=== PATIENT | female | born 1955 | race African-American/Black ===

== ENCOUNTER 2017-01-07 08:04 | Inpatient (IN) | payer OTHER, MEDICAID ==
[2017-01-01 16:26] LABS: BASOPHILS % (AUTO) 0.5 % (0.0-2.0); EOSINOPHILS # (AUTO) 0.2 K/uL (0.0-0.4); EOSINOPHILS % (AUTO) 2.9 % (0.0-4.0); HEMATOCRIT 36.2 % (36-48); HEMOGLOBIN 11.6 g/dL (12.0-16.0); MEAN CORPUSCULAR HEMOGLOBIN 30 pg (27-31); MEAN CORPUSCULAR HGB CONC 32 % (32-36); MEAN CORPUSCULAR VOLUME 92 fL (79.0-98.0); MONOCYTES # (AUTO) 0.5 K/uL (0.0-1.0); MONOCYTES % (AUTO) 6.7 % (1.7-9.3); NEUTROPHILS # (AUTO) 6.4 K/uL (1.8-7.7); NEUTROPHILS % (AUTO) 76.9 % (40.0-70.0); PLATELET COUNT (AUTO) 268 K/uL (130-430); RED BLOOD CELL COUNT(AUTO) 3.94 MIL/uL (4.2-6.2); RED CELL DISTRIBUTION WIDTH 14.1 % (9.0-15.0); WHITE BLOOD COUNT (AUTO) 8.1 K/uL (4.8-10.8)
[2017-01-01 16:36] LABS: CALCIUM 8.7 mg/dL (8.4-11.0); CREATININE 1.01 mg/dL (0.55-1.30); POTASSIUM 3.7 mmol/L (3.5-5.1)
[2017-01-01 16:39] LABS: INR 0.9 (0.8-1.2); PROTHROMBIN TIME 10.1 SECS (9.5-12.5)
[~2017-01-07] VITALS: Ht 167.6 cm; Wt 114.3 kg
[2017-01-07] MEDS ORDERED: GABA300S PO (08:56)
[2017-01-07] MEDS ORDERED: LEUC10TA2 PO (08:56)
[2017-01-07] MEDS ORDERED: BACL20TA PO (08:56)
[2017-01-07] MEDS ORDERED: DULO30CA51 PO (08:56)
[2017-01-07] MEDS ORDERED: FERR-57 PO (08:56)
[2017-01-07] MEDS ORDERED: CYCL7.5T20 PO (08:56)
[2017-01-07] MEDS ORDERED: FOLI-43 PO (08:56)
[2017-01-07] MEDS ORDERED: CA C1TAB92 PO (08:56)
[2017-01-07] MEDS ORDERED: PRED2.5T4 PO (08:56)
[2017-01-07] MEDS ORDERED: VALS320T13 PO (08:56)
[2017-01-07] MEDS ORDERED: ATOR40TA68 PO (08:56)
[2017-01-07] MEDS ORDERED: RANI-362 PO (08:56)
[2017-01-07] MEDS ORDERED: COR25 PO (08:56)
[2017-01-07] MEDS ORDERED: PRED5TAB PO (11:19)
[2017-01-07] MEDS ORDERED: LEUC5TAB PO (11:19)
[2017-01-07] MEDS ORDERED: GABA-531 PO (11:19)
[2017-01-07] MEDS ORDERED: [UNRECOGNIZED DRUG - CODE] SQ (11:21)
[2017-01-07] MEDS ORDERED: TOCI162S SQ (11:23)
[2017-01-07] MEDS ORDERED: FLUR100T3 PO (11:41)
[2017-01-07] MEDS ORDERED: DEXAMETHASONE SOD PHOSPHATE 4 MG/ML VIAL IVP ONE (15:00)
[2017-01-07] MEDS ORDERED: fentaNYL CITRATE 250 MCG/5 ML AMP IV ONE (15:00)
[2017-01-07] MEDS ORDERED: ROCURONIUM BROMIDE 10 MG/ML (ZEMURON) IV ONE (15:00)
[2017-01-07] MEDS ORDERED: LR 1,000 ML IV.SOLN IV ONE (15:00)
[2017-01-07] MEDS ORDERED: SUCCINYLCHOLINE CHLORIDE 20 MG/ML(QUELICIN) IVP ONE (15:00)
[2017-01-07] MEDS ORDERED: MIDAZOLAM HCL 5 MG/5 ML VIAL IVP ONE (15:00)
[2017-01-07] MEDS ORDERED: PROPOFOL 200MG/ 20ML VIAL (DIPRIVAN) IV ONE (15:00)
[2017-01-07] MEDS ORDERED: ONDANSETRON HCL 4 MG/2 ML VIAL IVP ONE (15:00)
[2017-01-07] MEDS ORDERED: HYDROCORTISONE SOD SUCC 100 MG/2 ML VIAL IVP ONE (15:00)
[2017-01-07] MEDS ORDERED: THROMBIN (BOVINE) 5000 UNITS/ VIAL TP ONE (15:00)
[2017-01-07] MEDS ORDERED: SEVOFLURANE 15 MIN GAS INH ONE (15:00)
[2017-01-07] MEDS ORDERED: KETOROLAC TROMETHAMINE 30 MG VIAL IVP ONE (15:00)
[2017-01-07] MEDS ORDERED: CEFAZOLIN 2 GM IVPB PREMIX 50 ML IV ONE (15:00)
[2017-01-07] MEDS ORDERED: DIPHENHYDRAMINE HCL 25 MG CAPSULE PO PRN (17:00)
[2017-01-07] MEDS ORDERED: ONDANSETRON HCL 4 MG/2 ML VIAL IVP PRN (17:00)
[2017-01-07] MEDS ORDERED: HYDROcodone/ACETAMIN 10-325 MG TAB PO PRN (17:00)
[2017-01-07] MEDS ORDERED: LR 1,000 ML IV SCH (17:00)
[2017-01-07] MEDS ORDERED: MILK OF MAGNESIA 30 ML UDC PO PRN (17:00)
[2017-01-07] MEDS ORDERED: HYDROmorphone 1 MG INJ. 1 MG/ML AMPUL IVP PRN ×3 (17:00)
[2017-01-07] MEDS ORDERED: MEPERIDINE HCL/PF 25 MG/ML DISP.SYRIN IVP PRN (17:00)
[2017-01-07] MEDS ORDERED: HYDROmorphone 2 MG/ML VIAL IVP PRN ×3 (17:00)
[2017-01-07] MEDS ORDERED: BACLOFEN 10 MG TABLET PO PRN (17:00)
[2017-01-07] MEDS ORDERED: BISACODYL 10 MG/SUPPOSITORY RC PRN (17:00)
[2017-01-07] MEDS ORDERED: ZOLPIDEM TARTRATE 5 MG TABLET PO PRN (17:00)
[2017-01-07 18:19] VITALS: BP_SYST 133
[2017-01-07 21:00] VITALS: BP_SYST 133
[2017-01-07] MEDS: DULoxetine HCL 30 MG CAPSULE.DR (CYMBALTA) PO SCH (21:44)
[2017-01-07] MEDS: GABAPENTIN 300 MG CAPSULE PO SCH (21:44)
[2017-01-07] MEDS: PREDNISONE 5 MG TABLET PO SCH (21:44)
[2017-01-07] MEDS: FERROUS SULFATE 325 MG TABLET.DR PO SCH (21:44)
[2017-01-07] MEDS: DOCUSATE SODIUM 100 MG CAPSULE PO SCH (21:44)
[2017-01-07] MEDS: BACLOFEN 10 MG TABLET PO SCH (21:44)
[2017-01-07] MEDS: CARVEDILOL 25 MG TABLET (COREG) PO SCH (21:45)
[2017-01-07] MEDS: CEFAZOLIN 2 GM IVPB PREMIX 50 ML IV SCH (23:38)
[2017-01-07] MEDS: KCL 20 mEq in D5NS 1000 mL 1,000 ML IV SCH (23:39)
[2017-01-08 00:40] VITALS: BP_SYST 119
[2017-01-08 05:12] LABS: POTASSIUM 3.8 mmol/L (3.5-5.1)
[2017-01-08 05:13] LABS: CALCIUM 8.5 mg/dL (8.4-11.0); CREATININE 1.28 mg/dL (0.55-1.30)
[2017-01-08 05:14] LABS: HEMATOCRIT 36.4 % (36-48); HEMOGLOBIN 12.3 g/dL (12.0-16.0); MEAN CORPUSCULAR HEMOGLOBIN 31 pg (27-31); MEAN CORPUSCULAR HGB CONC 34 % (32-36); MEAN CORPUSCULAR VOLUME 92 fL (79.0-98.0); PLATELET COUNT (AUTO) 243 K/uL (130-430); RED BLOOD CELL COUNT(AUTO) 3.95 MIL/uL (4.2-6.2); RED CELL DISTRIBUTION WIDTH 13.8 % (9.0-15.0); WHITE BLOOD COUNT (AUTO) 12.1 K/uL (4.8-10.8)
[2017-01-08 05:52] VITALS: BP_SYST 128
[2017-01-08] MEDS: CEFAZOLIN 2 GM IVPB PREMIX 50 ML IV SCH ×2 (06:30→14:35)
[2017-01-08 06:39] LABS: BAND % (MANUAL) 6 % (0-6); BASOPHILS % (MANUAL) 0 % (0-2); EOSINOPHILS % (MANUAL) 0 % (0-7); LYMPHOCYTES % (MANUAL) 3 % (20-46); MONOCYTES % (MANUAL) 2 % (0-11)
[2017-01-08 08:00] VITALS: BP_SYST 129
[2017-01-08] MEDS: FOLIC ACID 1 MG TABLET PO SCH (09:09)
[2017-01-08] MEDS: FERROUS SULFATE 325 MG TABLET.DR PO SCH ×2 (09:09→20:56)
[2017-01-08] MEDS: DOCUSATE SODIUM 100 MG CAPSULE PO SCH ×2 (09:09→20:55)
[2017-01-08] MEDS: DULoxetine HCL 30 MG CAPSULE.DR (CYMBALTA) PO SCH ×2 (09:09→20:55)
[2017-01-08] MEDS: ATORVASTATIN 20 MG TABLET PO SCH (09:09)
[2017-01-08] MEDS: BACLOFEN 10 MG TABLET PO SCH ×2 (09:10→20:55)
[2017-01-08] MEDS: PREDNISONE 5 MG TABLET PO SCH ×2 (09:10→20:55)
[2017-01-08] MEDS: KCL 20 mEq in D5NS 1000 mL 1,000 ML IV SCH ×3 (09:10→12:07)
[2017-01-08] MEDS: CARVEDILOL 25 MG TABLET (COREG) PO SCH ×2 (09:17→20:56)
[2017-01-08] MEDS: HYDROcodone/ACETAMIN 10-325 MG TAB PO PRN ×2 (09:25→16:27)
[2017-01-08 12:50] VITALS: BP_SYST 125
[2017-01-08 16:30] VITALS: BP_SYST 130
[2017-01-08 19:40] VITALS: BP_SYST 129
[2017-01-08] MEDS: GABAPENTIN 300 MG CAPSULE PO SCH (20:56)
[2017-01-09 01:04] VITALS: BP_SYST 132
[2017-01-09] MEDS: KCL 20 mEq in D5NS 1000 mL 1,000 ML IV SCH (03:15)
[2017-01-09 03:49] VITALS: BP_SYST 152
[2017-01-09 08:32] VITALS: BP_SYST 160
[2017-01-09] MEDS: FOLIC ACID 1 MG TABLET PO SCH (09:16)
[2017-01-09] MEDS: FERROUS SULFATE 325 MG TABLET.DR PO SCH (09:19)
[2017-01-09] MEDS: DOCUSATE SODIUM 100 MG CAPSULE PO SCH (09:19)
[2017-01-09] MEDS: PREDNISONE 5 MG TABLET PO SCH (09:19)
[2017-01-09] MEDS: ATORVASTATIN 20 MG TABLET PO SCH (09:19)
[2017-01-09] MEDS: DULoxetine HCL 30 MG CAPSULE.DR (CYMBALTA) PO SCH (09:20)
[2017-01-09] MEDS: BACLOFEN 10 MG TABLET PO SCH (09:20)
[2017-01-09] MEDS: CARVEDILOL 25 MG TABLET (COREG) PO SCH (09:20)
[2017-01-09 10:38] VITALS: BP_SYST 138
[2017-01-09] MEDS ORDERED: HYDR-4100 (10:48)
[2017-01-09 11:00] VITALS: BP_SYST 145
[2017-01-11] MEDS ORDERED: LEUCOVORIN CALCIUM 5 MG TABLET PO SCH (09:00)
== END 2017-01-09 11:25 | disposition home or self-care (01) | DRG 472 ==
LOC: SMU 09:00
PROVIDERS: ADMIT Neurological Surgery; ATTEND Neurological Surgery
PROC: 0RG10A0 Fusion of Cervical Vertebral Joint with Interbody Fusion Device, Anterior Approach, Anterior Column, Open Approach (ICD-10-PCS; 2017-01-07)
PROC: 0RT30ZZ Resection of Cervical Vertebral Disc, Open Approach (ICD-10-PCS; principal; 2017-01-07 07:30)
DX: M50.01 Cervical disc disorder with myelopathy, high cervical region (principal); Z68.41 Body mass index [BMI] 40.0-44.9, adult; K21.9 Gastro-esophageal reflux disease without esophagitis; I10 Essential (primary) hypertension; Z79.899 Other long term (current) drug therapy; E66.01 Morbid (severe) obesity due to excess calories
CPT/HCPCS: 36415; 76001; 80048; 85007; 85025; 85027; 85610-TC; 87081; 97116-GP; C1713; C1763; J0330; J0690; J1100; J1720; J1885; J2250; J2405; J2704; J3010; J7120; J7512

== ENCOUNTER 2017-01-12 16:15 | Inpatient (IN) | payer OTHER, MEDICAID ==
[~2017-01-12] VITALS: Ht 167.6 cm; Wt 120.7 kg
[2017-01-12 16:15] VITALS: BP_SYST 148
[~2017-01-12 16:15] MED LIST: ATOR40TA68 PO; BACL20TA PO; COR25 PO; CYCL7.5T20 PO; DULO30CA51 PO; FERR-57 PO; FLUR100T3 PO; FOLI-43 PO; GABA-531 PO; HYDR-4100; LEUC5TAB PO; PRED5TAB PO; RANI-362 PO; VALS320T13 PO
[2017-01-12 17:08] LABS: BASOPHILS % (AUTO) 0.6 % (0.0-2.0); EOSINOPHILS # (AUTO) 0.2 K/uL (0.0-0.4); EOSINOPHILS % (AUTO) 4.6 % (0.0-4.0); HEMATOCRIT 37.1 % (36-48); HEMOGLOBIN 12.3 g/dL (12.0-16.0); LYMPHOCYTES # (AUTO) 0.9 K/uL (1.0-5.5); LYMPHOCYTES % (AUTO) 18.3 % (20.5-51.5); MEAN CORPUSCULAR HEMOGLOBIN 31 pg (27-31); MEAN CORPUSCULAR HGB CONC 33 % (32-36); MEAN CORPUSCULAR VOLUME 92 fL (79.0-98.0); MONOCYTES # (AUTO) 0.3 K/uL (0.0-1.0); MONOCYTES % (AUTO) 6.7 % (1.7-9.3); NEUTROPHILS # (AUTO) 3.8 K/uL (1.8-7.7); NEUTROPHILS % (AUTO) 69.8 % (40.0-70.0); PLATELET COUNT (AUTO) 240 K/uL (130-430); RED BLOOD CELL COUNT(AUTO) 4.03 MIL/uL (4.2-6.2); RED CELL DISTRIBUTION WIDTH 14.2 % (9.0-15.0); WHITE BLOOD COUNT (AUTO) 5.2 K/uL (4.8-10.8)
[2017-01-12 17:12] LABS: CALCIUM 9.2 mg/dL (8.4-11.0); CREATININE 0.87 mg/dL (0.55-1.30); POTASSIUM 3.8 mmol/L (3.5-5.1)
[2017-01-12 17:17] LABS: ALBUMIN 3.4 g/dL (3.4-4.8); TOTAL BILIRUBIN 0.5 mg/dL (0.0-1.0); TOTAL PROTEIN, SERUM 6.4 g/dL (6.4-8.3)
[2017-01-12] MEDS ORDERED: NACL 0.9% 1,000 ML IV ONE (18:15)
[2017-01-12 21:46] LABS: BILIRUBIN,URINE NEGATIVE (NEGATIVE); BLOOD, URINE NEGATIVE (NEGATIVE); CLARITY/URINE CLEAR (CLEAR); COLOR,URINE YELLOW (YELLOW); GLUCOSE,URINE NEGATIVE (NEGATIVE); KETONES,URINE NEGATIVE (NEGATIVE); LEUKOCYTE ESTERASE ,URINE NEGATIVE (NEGATIVE); NITRITE, URINE NEGATIVE (NEGATIVE); PROTEIN URINE NEGATIVE (NEGATIVE); UROBILINOGEN,URINE 0.2 (0.2-1.0)
[2017-01-13] MEDS ORDERED: CYCL-10 PO (01:31)
[2017-01-13] MEDS ORDERED: LIP40 PO (01:32)
[2017-01-13] MEDS ORDERED: VALS1TAB80 PO (01:35)
[2017-01-13] MEDS ORDERED: [UNRECOGNIZED DRUG - CODE] SQ (01:36)
[2017-01-13] MEDS ORDERED: TOCI162S SQ (01:36)
[2017-01-13 02:26] VITALS: BP_SYST 138
[2017-01-13 07:58] VITALS: BP_SYST 140
[2017-01-13 08:27] VITALS: BP_SYST 141
[2017-01-13] MEDS ORDERED: VALSARTAN PO SCH (09:00)
[2017-01-13] MEDS: BACLOFEN 10 MG TABLET PO SCH ×2 (09:00→21:41)
[2017-01-13] MEDS ORDERED: FLURBIPROFEN 100 MG PO SCH (09:00)
[2017-01-13] MEDS: VALSARTAN 160 MG TABLET (DIOVAN) PO SCH (09:00)
[2017-01-13] MEDS ORDERED: HCTZ PO SCH (09:00)
[2017-01-13] MEDS: DULoxetine HCL 30 MG CAPSULE.DR (CYMBALTA) PO SCH (09:01)
[2017-01-13] MEDS: HYDROCHLOROTHIAZIDE 25 MG TABLET (HCTZ) PO SCH (09:01)
[2017-01-13] MEDS: CYCLOBENZAPRINE HCL 10 MG TABLET (FLEXERIL) PO SCH ×3 (09:01→21:41)
[2017-01-13] MEDS: FERROUS SULFATE 325 MG TABLET.DR PO SCH ×2 (09:02→21:42)
[2017-01-13] MEDS: FOLIC ACID 1 MG TABLET PO SCH (09:02)
[2017-01-13] MEDS: CARVEDILOL 25 MG TABLET (COREG) PO SCH ×2 (09:02→21:42)
[2017-01-13] MEDS: ATORVASTATIN 20 MG TABLET PO SCH (09:02)
[2017-01-13] MEDS: PREDNISONE 5 MG TABLET PO SCH ×2 (09:02→21:41)
[2017-01-13 12:35] VITALS: BP_SYST 142
[2017-01-13 16:11] VITALS: BP_SYST 125
[2017-01-13 20:30] VITALS: BP_SYST 146
[2017-01-13] MEDS: GABAPENTIN 300 MG CAPSULE PO SCH (21:41)
[2017-01-14] VITALS: BP_SYST 145
[2017-01-14 04:20] VITALS: BP_SYST 139
[2017-01-14 08:00] VITALS: BP_SYST 128
[2017-01-14] MEDS: BACLOFEN 10 MG TABLET PO SCH ×2 (09:30→21:31)
[2017-01-14] MEDS: DULoxetine HCL 30 MG CAPSULE.DR (CYMBALTA) PO SCH (09:31)
[2017-01-14] MEDS: FOLIC ACID 1 MG TABLET PO SCH (09:31)
[2017-01-14] MEDS: PREDNISONE 5 MG TABLET PO SCH ×2 (09:31→21:31)
[2017-01-14] MEDS: ATORVASTATIN 20 MG TABLET PO SCH (09:31)
[2017-01-14] MEDS: CYCLOBENZAPRINE HCL 10 MG TABLET (FLEXERIL) PO SCH ×3 (09:32→21:30)
[2017-01-14] MEDS: FERROUS SULFATE 325 MG TABLET.DR PO SCH ×2 (09:32→21:30)
[2017-01-14] MEDS: VALSARTAN 160 MG TABLET (DIOVAN) PO SCH (09:33)
[2017-01-14] MEDS: HYDROCHLOROTHIAZIDE 25 MG TABLET (HCTZ) PO SCH (09:33)
[2017-01-14] MEDS: CARVEDILOL 25 MG TABLET (COREG) PO SCH ×2 (09:39→21:30)
[2017-01-14 12:09] VITALS: BP_SYST 142
[2017-01-14 16:04] VITALS: BP_SYST 104
[2017-01-14 19:45] VITALS: BP_SYST 141
[2017-01-14] MEDS: FLURBIPROFEN 100 MG PO SCH (21:00)
[2017-01-14] MEDS: GABAPENTIN 300 MG CAPSULE PO SCH (21:30)
[2017-01-15] VITALS (9 sets, daily range): BP systolic 94–153
[2017-01-15] MEDS: FLURBIPROFEN 100 MG PO SCH ×2 (09:00→20:57)
[2017-01-15] MEDS: FERROUS SULFATE 325 MG TABLET.DR PO SCH ×2 (09:47→20:53)
[2017-01-15] MEDS: DULoxetine HCL 30 MG CAPSULE.DR (CYMBALTA) PO SCH (09:47)
[2017-01-15] MEDS: BACLOFEN 10 MG TABLET PO SCH ×2 (09:48→20:52)
[2017-01-15] MEDS: CYCLOBENZAPRINE HCL 10 MG TABLET (FLEXERIL) PO SCH ×3 (09:48→20:53)
[2017-01-15] MEDS: CARVEDILOL 25 MG TABLET (COREG) PO SCH ×2 (09:48→20:54)
[2017-01-15] MEDS: HYDROCHLOROTHIAZIDE 25 MG TABLET (HCTZ) PO SCH (09:49)
[2017-01-15] MEDS: FOLIC ACID 1 MG TABLET PO SCH (09:49)
[2017-01-15] MEDS: ATORVASTATIN 20 MG TABLET PO SCH (09:49)
[2017-01-15] MEDS: PREDNISONE 5 MG TABLET PO SCH ×2 (09:49→20:52)
[2017-01-15] MEDS: VALSARTAN 160 MG TABLET (DIOVAN) PO SCH (09:50)
[2017-01-15] MEDS: GABAPENTIN 300 MG CAPSULE PO SCH (20:53)
[2017-01-16 04:09] VITALS: BP_SYST 133
[2017-01-16 08:00] VITALS: BP_SYST 141
[2017-01-16] MEDS: ATORVASTATIN 20 MG TABLET PO SCH (09:15)
[2017-01-16] MEDS: BACLOFEN 10 MG TABLET PO SCH ×2 (09:16→22:29)
[2017-01-16] MEDS: VALSARTAN 160 MG TABLET (DIOVAN) PO SCH (09:18)
[2017-01-16] MEDS: HYDROCHLOROTHIAZIDE 25 MG TABLET (HCTZ) PO SCH (09:20)
[2017-01-16] MEDS: FERROUS SULFATE 325 MG TABLET.DR PO SCH ×2 (09:21→22:29)
[2017-01-16] MEDS: DULoxetine HCL 30 MG CAPSULE.DR (CYMBALTA) PO SCH (09:21)
[2017-01-16] MEDS: PREDNISONE 5 MG TABLET PO SCH ×2 (09:21→22:29)
[2017-01-16] MEDS: FOLIC ACID 1 MG TABLET PO SCH (09:21)
[2017-01-16] MEDS: CYCLOBENZAPRINE HCL 10 MG TABLET (FLEXERIL) PO SCH ×3 (09:21→22:30)
[2017-01-16] MEDS: CARVEDILOL 25 MG TABLET (COREG) PO SCH ×2 (09:22→22:30)
[2017-01-16 12:55] VITALS: BP_SYST 116
[2017-01-16 16:44] VITALS: BP_SYST 107
[2017-01-16 20:00] VITALS: BP_SYST 120
[2017-01-16] MEDS: FLURBIPROFEN 100 MG PO SCH (21:00)
[2017-01-16] MEDS: GABAPENTIN 300 MG CAPSULE PO SCH (22:29)
[2017-01-17] VITALS (8 sets, daily range): BP systolic 103–146
[2017-01-17] MEDS ORDERED: IOHEXOL 50 ML IV ONE (08:59)
[2017-01-17] MEDS: CARVEDILOL 25 MG TABLET (COREG) PO SCH ×2 (09:00→22:10)
[2017-01-17] MEDS: DULoxetine HCL 30 MG CAPSULE.DR (CYMBALTA) PO SCH (09:00)
[2017-01-17] MEDS: VALSARTAN 160 MG TABLET (DIOVAN) PO SCH (09:00)
[2017-01-17] MEDS: ATORVASTATIN 20 MG TABLET PO SCH (09:00)
[2017-01-17] MEDS: BACLOFEN 10 MG TABLET PO SCH ×2 (09:00→22:02)
[2017-01-17] MEDS: PREDNISONE 5 MG TABLET PO SCH ×2 (09:00→22:02)
[2017-01-17] MEDS: FOLIC ACID 1 MG TABLET PO SCH (09:00)
[2017-01-17] MEDS ORDERED: LIDOCAINE 1%, 20 ML MDV 20 ML ONE (09:00)
[2017-01-17] MEDS: HYDROCHLOROTHIAZIDE 25 MG TABLET (HCTZ) PO SCH (09:00)
[2017-01-17] MEDS: FERROUS SULFATE 325 MG TABLET.DR PO SCH ×2 (09:00→22:02)
[2017-01-17] MEDS: CYCLOBENZAPRINE HCL 10 MG TABLET (FLEXERIL) PO SCH ×3 (09:00→22:02)
[2017-01-17] MEDS: FLURBIPROFEN 100 MG PO SCH ×2 (09:00→21:00)
[2017-01-17] MEDS ORDERED: POLYMYXIN 500,000/BACIT.10,000 UNITS in NS IRR 1 L IR ONE (17:50)
[2017-01-17] MEDS ORDERED: ROCURONIUM BROMIDE 10 MG/ML (ZEMURON) IV ONE (19:01)
[2017-01-17] MEDS ORDERED: SEVOFLURANE 15 MIN GAS INH ONE (19:01)
[2017-01-17] MEDS ORDERED: CEFAZOLIN 2 GM IVPB PREMIX 50 ML IV ONE (19:01)
[2017-01-17] MEDS ORDERED: SUCCINYLCHOLINE CHLORIDE 20 MG/ML(QUELICIN) IVP ONE (19:01)
[2017-01-17] MEDS ORDERED: BUPIVACAINE /EPINEPHRINE/PF 0.5% 30 ML VIAL INJ ONE (19:01)
[2017-01-17] MEDS ORDERED: GLYCOPYRROLATE 0.2 MG/ML VIAL IJ ONE (19:01)
[2017-01-17] MEDS ORDERED: DEXAMETHASONE SOD PHOSPHATE 4 MG/ML VIAL IVP ONE (19:01)
[2017-01-17] MEDS ORDERED: MIDAZOLAM HCL 5 MG/5 ML VIAL IVP ONE (19:01)
[2017-01-17] MEDS ORDERED: KETOROLAC TROMETHAMINE 30 MG VIAL IVP ONE (19:01)
[2017-01-17] MEDS ORDERED: fentaNYL CITRATE/PF 100 MCG/2 ML AMP IVP ONE (19:01)
[2017-01-17] MEDS ORDERED: METOCLOPRAMIDE HCL 10 MG/2 ML VIAL IVP ONE (19:01)
[2017-01-17] MEDS ORDERED: NS 100 ML BAG IV ONE (19:01)
[2017-01-17] MEDS ORDERED: LR 1,000 ML IV.SOLN IV ONE (19:01)
[2017-01-17] MEDS ORDERED: PROPOFOL 200MG/ 20ML VIAL (DIPRIVAN) IV ONE (19:01)
[2017-01-17] MEDS ORDERED: LR 1,000 ML IV ONE (20:01)
[2017-01-17] MEDS ORDERED: NALOXONE HCL 0.4 MG/ML AMP (NARCAN) IVP PRN (20:15)
[2017-01-17] MEDS ORDERED: ONDANSETRON HCL 4 MG/2 ML VIAL IVP PRN ×3 (20:15→21:00)
[2017-01-17] MEDS ORDERED: DIPHENHYDRAMINE INJ 50 MG/ML VIAL IVP PRN (20:15)
[2017-01-17] MEDS ORDERED: NALBUPHINE HCL 10 MG/ML AMP IVP PRN (20:15)
[2017-01-17] MEDS ORDERED: ePHEDrine sulfate 50 MG/ML VIAL IVP PRN (20:15)
[2017-01-17] MEDS ORDERED: fentaNYL CITRATE/PF 100 MCG/2 ML AMP IVP PRN (20:15)
[2017-01-17] MEDS ORDERED: MILK OF MAGNESIA 30 ML UDC PO PRN (21:00)
[2017-01-17] MEDS ORDERED: METHOCARBAMOL 500 MG TABLET PO PRN (21:00)
[2017-01-17] MEDS ORDERED: BISACODYL 10 MG/SUPPOSITORY RC PRN (21:00)
[2017-01-17] MEDS ORDERED: ZOLPIDEM TARTRATE 5 MG TABLET PO PRN (21:00)
[2017-01-17] MEDS ORDERED: HYDROmorphone 2 MG/ML VIAL IVP PRN (21:00)
[2017-01-17] MEDS ORDERED: DIPHENHYDRAMINE HCL 50 MG CAPSULE PO PRN (21:00)
[2017-01-17] MEDS ORDERED: HYDROcodone/ACETAMIN 10-325 MG TAB PO PRN ×2 (21:00)
[2017-01-17] MEDS ORDERED: HYDROmorphone 1 MG INJ. 1 MG/ML AMPUL IVP PRN ×2 (21:00)
[2017-01-17] MEDS: GABAPENTIN 300 MG CAPSULE PO SCH (22:02)
[2017-01-17] MEDS: DOCUSATE SODIUM 100 MG CAPSULE PO SCH (22:03)
[2017-01-17] MEDS ORDERED: CEFAZOLIN 2 GM IVPB PREMIX 100 ML IV ONE (22:12)
[2017-01-17] MEDS: KCL 20 mEq in D5NS 1000 mL 1,000 ML IV SCH (22:56)
[2017-01-17] MEDS: CEFAZOLIN 2 GM IVPB PREMIX 50 ML IV SCH (22:57)
[2017-01-18 04:00] VITALS: BP_SYST 116
[2017-01-18] MEDS: CEFAZOLIN 2 GM IVPB PREMIX 50 ML IV SCH ×2 (05:14→12:01)
[2017-01-18 07:03] LABS: BILIRUBIN,URINE NEGATIVE (NEGATIVE); BLOOD, URINE 3+ (NEGATIVE); CLARITY/URINE CLOUDY (CLEAR); COLOR,URINE YELLOW (YELLOW); GLUCOSE,URINE NEGATIVE (NEGATIVE); KETONES,URINE NEGATIVE (NEGATIVE); LEUKOCYTE ESTERASE ,URINE 3+ (NEGATIVE); NITRITE, URINE NEGATIVE (NEGATIVE); PH,URINE 8.5 (5.0-8.0); PROTEIN URINE 2+ (NEGATIVE); UROBILINOGEN,URINE 0.2 (0.2-1.0)
[2017-01-18 07:19] LABS: BACTERIA,URINE MANY /HPF (None Seen); MUCUS,URINE 1+ /LPF (None Seen); RBC,URINE 20-50 /HPF (0-3); URINE AMORPHOUS PHOSPHATES 1+ /HPF (None Seen); WBC,URINE >100 /HPF (0-3)
[2017-01-18 08:11] VITALS: BP_SYST 138
[2017-01-18] MEDS: CYCLOBENZAPRINE HCL 10 MG TABLET (FLEXERIL) PO SCH ×3 (08:33→20:58)
[2017-01-18] MEDS: DOCUSATE SODIUM 100 MG CAPSULE PO SCH ×2 (08:34→20:58)
[2017-01-18] MEDS: HYDROCHLOROTHIAZIDE 25 MG TABLET (HCTZ) PO SCH (08:34)
[2017-01-18] MEDS: PREDNISONE 5 MG TABLET PO SCH ×2 (08:34→20:58)
[2017-01-18] MEDS: BACLOFEN 10 MG TABLET PO SCH ×2 (08:34→20:58)
[2017-01-18] MEDS: ATORVASTATIN 20 MG TABLET PO SCH (08:34)
[2017-01-18] MEDS: FERROUS SULFATE 325 MG TABLET.DR PO SCH ×2 (08:35→20:58)
[2017-01-18] MEDS: CARVEDILOL 25 MG TABLET (COREG) PO SCH ×2 (08:35→20:59)
[2017-01-18] MEDS: DULoxetine HCL 30 MG CAPSULE.DR (CYMBALTA) PO SCH (08:35)
[2017-01-18] MEDS: VALSARTAN 160 MG TABLET (DIOVAN) PO SCH (08:35)
[2017-01-18] MEDS: FOLIC ACID 1 MG TABLET PO SCH (08:35)
[2017-01-18] MEDS: FLURBIPROFEN 100 MG PO SCH ×2 (08:36→20:59)
[2017-01-18] MEDS: KCL 20 mEq in D5NS 1000 mL 1,000 ML IV SCH (09:00)
[2017-01-18] MEDS ORDERED: LEUCOVORIN CALCIUM 5 MG TABLET PO SCH (09:00)
[2017-01-18 12:41] VITALS: BP_SYST 135
[2017-01-18 16:25] VITALS: BP_SYST 115
[2017-01-18 18:37] VITALS: BP_SYST 115
[2017-01-18 19:30] VITALS: BP_SYST 130
[2017-01-18] MEDS: GABAPENTIN 300 MG CAPSULE PO SCH (20:58)
== END 2017-01-18 22:00 | DRG 519 ==
LOC: SED 16:15 → SMU 01-13 01:32
PROC: 00NY0ZZ Release Lumbar Spinal Cord, Open Approach (ICD-10-PCS; 2017-01-17)
PROC: B41 Imaging, Lower Arteries, Fluoroscopy (ICD-10-PCS; 2017-01-17)
PROC: 0ST20ZZ Resection of Lumbar Vertebral Disc, Open Approach (ICD-10-PCS; principal; 2017-01-17 17:30)
DX: M51.06 Intervertebral disc disorders with myelopathy, lumbar region (principal); Z68.41 Body mass index [BMI] 40.0-44.9, adult; M06.9 Rheumatoid arthritis, unspecified; E66.01 Morbid (severe) obesity due to excess calories; I10 Essential (primary) hypertension; W19.XXXA Unspecified fall, initial encounter; Y93.89 Activity, other specified; Y92.098 Other place in other non-institutional residence as the place of occurrence of the external cause; Y99.8 Other external cause status; Z79.899 Other long term (current) drug therapy
CPT/HCPCS: 36415; 70450-TC; 71010; 72125-TC; 72132-TC; 72265-TC; 76000; 80053; 81000-TC; 81003; 83605; 83880; 84484; 85025; 87040-TC; 87081; 87086; 87186-TC; 88304; 93005; 97110-GP; 97116-GP; 97530-GP; 99285; C1713; J0330; J0690; J1100; J1885; J2001; J2250; J2704; J2765; J3010; J3490; J7030; J7120; J7512; Q9967